=== PATIENT | female | born 1940 | race Caucasian/White ===

== ENCOUNTER 2016-09-13 18:39 | Inpatient (IN) | payer OTHER, MEDICARE ==
[~2016-09-13] VITALS: Ht 157.5 cm; Wt 92.0 kg
[~2016-09-13 18:39] MED LIST: ATOR40TA PO; CALCTAB80 PO; GABA600T PO; MAGN250T13 PO; OMEG100037 PO; PARO20TA PO; SYNT100T PO; TAB-TAB PO; VITA100017 PO; VITA20002 PO; Z.0.COMMODE-3:1; Z.0.WALKERFRONT
[2016-09-13 19:19] VITALS: BP 140/64; PULSE 76; RESP 22; TEMP 99.3; O2SAT 97
[2016-09-13] MEDS ORDERED: SODIUM CHLORIDE 0.9% FLUSH 10 ML FLUSH IVF PRN (19:30)
[2016-09-13] MEDS ORDERED: RESP: ALBUTEROL 2.5 MG/3 ML NEB (SCH) INH ONE (19:30)
--- NOTE | 2016-09-13 19:39 | PD ---
HPI Chief Complaint: Altered Mental Status Time Seen by Provider: 19:21 Travel History International Travel<30 days: No Contact w/Intl Traveler<30days: No Traveled to known affect area: No History of Present Illness HPI 76-year-old female arrives by EMS. History is provided by EMS and the patient. The patient drove here from [place] yesterday. The dry was at least 10 hours long. She arrived home yesterday and felt "crummy" in this morning felt chest pain shortness of breath and a cough. She also complains of generalized cephalgia. She denies fever. Onset gradual. Severity moderate. The patient has had no blood in her stool or urine. The patient is unaware of any other change in her baseline state of health and may account for her symptoms today. PFSH Past Medical History Cancer: No Cardiovascular Problems: No High Cholesterol: Yes Endocrine: No Gastrointestinal Disorders: Yes (GERD) Genitourinary: No Hepatitis: No Hiatal Hernia: No Hypertension: Yes (BORDERLINE) Immune Disorder: No Medical other: Yes (SHINGLES LEFT SIDE OF FACE) Musculoskeletal: Yes (GENERALIZED ARTHRITIS) Neurologic: No Psychiatric: No Reproductive: No Respiratory: No Thyroid Disease: Yes (HYPO) Tetanus Vaccination: > 5 Years Past Surgical History Abdominal Surgery: Yes (CHOLCYSTECTOMY) AICD: No Cardiac Surgery: No Cholecystectomy: Yes Ear Surgery: No Endocrine Surgery: No Eye Surgery: No Genitourinary Surgery: No Gynecologic Surgery: No Joint Replacement: Yes (TOTAL LEFT KNEE) Oral Surgery: No Pacemaker: No Thoracic Surgery: No Other Surgery: Yes (RT SHOULDER ) Social History Alcohol Use: No Tobacco Use: No Substance Use: No Allergies-Medications (Allergen,Severity, Reaction): Coded Allergies: No Known Allergies (Unverified , 11/11/15) Reported Meds & Prescriptions Reported Meds & Active Scripts Active Reported Calcium 600 + Vit D Tablet (Calcium Carbonate/Vitamin D3) 1 Each Tablet 1 Tab PO DAILY C-1000 (Ascorbic Acid) 1,000 Mg Tablet 1,000 Mg PO DAILY Gabapentin 600 Mg Tab 600 Mg PO DAILY PRN Levothyroxine (Levothyroxine Sodium) 100 Mcg Tab 100 Mcg PO DAILY Sm Magnesium (Magnesium) 250 Mg Tab 250 Mg PO DAILY Multi Vitamin Daily (Multiple Vitamin) 1 Tab Tab 1 Tab PO DAILY [place] 3 1000 mg ([place]-3 Fatty Acids) 1 Cap Cap 1,000 Mg PO DAILY Paxil (Paroxetine HCl) 40 Mg Tablet 40 Mg PO DAILY Review of Systems Except as stated in HPI: all other systems reviewed are Neg General / Constitutional: No: Fever Physical Exam Narrative GENERAL: 76-year-old female well-nourished well-developed AO 3 SKIN: Focused skin assessment warm/dry. HEAD: Atraumatic. Normocephalic. EYES: Pupils equal and round. No scleral icterus. No injection or drainage. ENT: No nasal bleeding or discharge. Mucous membranes pink and moist. NECK: Trachea midline. No JVD. CARDIOVASCULAR: Regular rate and rhythm. No murmur appreciated. RESPIRATORY: No accessory muscle use. Clear to auscultation. Breath sounds equal bilaterally. GASTROINTESTINAL: Abdomen soft, non-tender, nondistended. Hepatic and splenic margins not palpable. MUSCULOSKELETAL: No obvious deformities. No clubbing. No cyanosis. No edema. NEUROLOGICAL: CN III-XII normal. Moving all extremities normally. AOx3. PSYCHIATRIC: Appropriate mood and affect; insight and judgment normal. Data Data Last Documented VS Vital Signs Date Time Temp Pulse Resp B/P Pulse Ox O2 Delivery O2 Flow Rate FiO2 09/13/16 22:36 67 20 149/63 98 Nasal Cannula 2 09/13/16 19:19 99.3 VS reviewed Orders Complete Blood Count With Diff (09/13/16 19:26) Comprehensive Metabolic Panel (09/13/16 19:26) B-Type Natriuretic Peptide (09/13/16 19:26) Ckmb (Isoenzyme) Profile (09/13/16 19:26) Troponin I (09/13/16 19:26) Arterial Blood Gas (Abg) (09/13/16 19:26) Urinalysis - C+S If Indicated (09/13/16 19:26) Iv Access Insert/Monitor (09/13/16 19:26) Electrocardiogram (09/13/16 19:26) Ecg Monitoring (09/13/16 19:26) Oximetry (09/13/16 19:26) Oxygen Administration (09/13/16 19:26) Chest, Single Ap (09/13/16 19:26) Ct Pulmonary Angiogram (09/13/16 19:26) Sodium Chloride 0.9% Flush (Ns Flush) (09/13/16 19:30) Albuterol Neb (Albuterol Neb) (09/13/16 19:30) Us Leg Venous Doppler Bilat (09/13/16 ) CKMB (09/13/16 19:30) CKMB% (09/13/16 19:30) Ceftriaxone Inj (Rocephin Inj) (09/13/16 22:00) Azithromycin (Zithromax) (09/13/16 22:00) Iohexol 350 Inj (Omnipaque 350 Inj) (09/13/16 22:08) Furosemide Inj (Lasix Inj) (09/13/16 22:45) Admit Order (Ed Use Only) (09/13/16 22:48) Labs Laboratory Tests Test 09/13/16 09/13/16 19:30 19:40 White Blood Count 5.2 TH/MM3 Red Blood Count 4.08 MIL/MM3 Hemoglobin 12.3 GM/DL Hematocrit 37.2 % Mean Corpuscular Volume 91.3 FL Mean Corpuscular Hemoglobin 30.0 PG Mean Corpuscular Hemoglobin 32.9 % Concent Red Cell Distribution Width 14.2 % Platelet Count 148 TH/MM3 Mean Platelet Volume 9.3 FL Neutrophils (%) (Auto) 63.5 % Lymphocytes (%) (Auto) 21.5 % Monocytes (%) (Auto) 13.4 % Eosinophils (%) (Auto) 0.6 % Basophils (%) (Auto) 1.0 % Neutrophils # (Auto) 3.3 TH/MM3 Lymphocytes # (Auto) 1.1 TH/MM3 Monocytes # (Auto) 0.7 TH/MM3 Eosinophils # (Auto) 0.0 TH/MM3 Basophils # (Auto) 0.1 TH/MM3 CBC Comment DIFF FINAL Differential Comment Sodium Level 138 MEQ/L Potassium Level 3.8 MEQ/L Chloride Level 105 MEQ/L Carbon Dioxide Level 24.7 MEQ/L Anion Gap 8 MEQ/L Blood Urea Nitrogen 16 MG/DL Creatinine 1.19 MG/DL Estimat Glomerular Filtration 44 ML/MIN Rate Random Glucose 94 MG/DL Calcium Level 7.8 MG/DL Total Bilirubin 0.6 MG/DL Aspartate Amino Transf 77 U/L (AST/SGOT) Alanine Aminotransferase 61 U/L (ALT/SGPT) Alkaline Phosphatase 93 U/L Total Creatine Kinase 183 U/L Creatine Kinase MB 0.9 NG/ML Troponin I 0.03 NG/ML B-Type Natriuretic Peptide 368 PG/ML Total Protein 7.0 GM/DL Albumin 3.3 GM/DL Blood Gas Puncture Site RT RADIAL Blood Gas Patient Temperature 98.6 Blood Gas HCO3 24 mmol/L Blood Gas Base Excess 0.1 mmol/L Blood Gas Oxygen Saturation 97 % Arterial Blood pH 7.43 Arterial Blood Partial 36 mmHg Pressure CO2 Arterial Blood Partial 114 mmHG Pressure O2 Arterial Blood Oxygen Content 16.6 Vol % Arterial Blood 1.1 % Carboxyhemoglobin Arterial Blood Methemoglobin 0.6 % Blood Gas Hemoglobin 12.1 G/DL Oxygen Delivery Device NASAL CANNULA Blood Gas Liter Flow 3.5 L/M Blood Gas Inspired Oxygen 34 % MDM Medical Decision Making Medical Screen Exam Complete: Yes Emergency Medical Condition: Yes Medical Record Reviewed: Yes Differential Diagnosis Pneumonia, CHF, UTI, anemia, hyperuremia Narrative Course CBC & BMP Diagram 09/13/16 19:30 BNP 368 Tn 0.03 CKMB 0.9 ALT 61 AST 77 Last 24 hours Impressions Chest X-Ray 09/13/161925 Signed Impressions: Service Date/Time: September 19:25 - CONCLUSION: Perihilar and left lower lung air space opacities suggest either pulmonary edema or infiltrates. Rubio Velazquez MD CT Angiography 09/13/161925 Signed Impressions: Service Date/Time: September 22:06 - CONCLUSION: 1. The study is negative for pulmonary embolism. 2. Patchy areas of infiltrate in the lower lungs bilaterally. Rubio Velazquez MD Lower Extremity Ultrasound 09/13/16 0000 Signed Impressions: Service Date/Time: September 20:17 - CONCLUSION: The study is negative for deep venous thrombosis bilateral lower extremity. Rubio Velazquez MD The patient has a left lung pneumonia. Antibiotic started. Admission for the same. Discussed Dr Shelley. Diagnosis Primary Impression: PNA (pneumonia) Qualified Code: J18.1 - Pneumonia of left lower lobe due to infectious organism Additional Impression: Chest pain at rest Admitting Information Admitting Physician Requests: Admit Grant Velarde MD Sep 13, 2016 19:39
[2016-09-13 20:07] LABS: AUTOMATED NEUTROPHIL # 3.3 TH/MM3 (1.8-7.7); BASOPHIL # 0.1 TH/MM3 (0-0.2); EOSINOPHIL % 0.6 % (0.0-4.0); HEMATOCRIT 37.2 % (35.0-46.0); HEMO FLAGS DIFF FINAL; LYMPH % 21.5 % (9.0-44.0); LYMPHOCYTE # 1.1 TH/MM3 (1.0-4.8); MEAN CELL VOLUME 91.3 FL (80.0-100.0); MEAN CORPUSCULAR HGB CONC 32.9 % (32.0-36.0); MONO % 13.4 % (0.0-8.0); NEUT % 63.5 % (16.0-70.0); PLATELET COUNT 148 TH/MM3 (150-450); RED BLOOD COUNT 4.08 MIL/MM3 (4.00-5.30); RED CELL DISTRIBUTION WIDTH 14.2 % (11.6-17.2); WHITE BLOOD COUNT 5.2 TH/MM3 (4.0-11.0)
[2016-09-13 20:07] LABS: BLOOD GAS BASE EXCESS 0.1 mmol/L (-2-2); BLOOD GAS CARBOXYHEMOGLOBIN 1.1 % (0-4); BLOOD GAS HCO3 24 mmol/L (22-26); BLOOD GAS METHEMOGLOBIN 0.6 % (0-2); BLOOD GAS O2 HGB SATURATION 97 % (90-100); BLOOD GAS OXYGEN CONTENT 16.6 Vol % (12.0-20.0); BLOOD GAS PCO2 36 mmHg (38-42); BLOOD GAS PO2 114 mmHG (61-120); BLOOD GAS TOTAL HGB 12.1 G/DL (12.0-16.0); TEMP CORR TO 98.6
[2016-09-13 20:08] LABS: CRITICAL VALUE NO; DRAW SITE RT RADIAL; FIO2 34 %; LITER FLOW 3.5 L/M; NUMBER OF ARTERIAL PUNCTURES 1; OXYGEN DEVICE NASAL CANNULA; STAT NO; ULNAR PULSE PRESENT
--- NOTE | 2016-09-13 20:13 | RADRPT ---
EXAM DATE/TIME: 09/13/2016 19:25 [facility] COMPARISON: CHEST SINGLE AP, November 11, 2015, 13:40. INDICATIONS : Shortness of breath and coughing. MEDICAL HISTORY : Shingles. Hypercholesterolemia. Hypothyroidism. GERD, Hypertension. SURGICAL HISTORY : Rotator cuff, right. ENCOUNTER: Initial ACUITY: 1 day PAIN SCORE: 0/10 LOCATION: Bilateral chest FINDINGS: There is some indistinctness and fullness of the perihilar region which is a new finding compared to the prior chest x-ray. There also some patchy areas of infiltrate in the left lower lung. The heart is normal size. Right shoulder arthroplasty. CONCLUSION: Perihilar and left lower lung air space opacities suggest either pulmonary edema or infiltrates. Rubio Velazquez MD on September 13, 2016 at 20:10 Board Certified Radiologist. This report was verified electronically.
[2016-09-13 20:23] LABS: ANION GAP 8 MEQ/L (5-15); AST (GOT) 77 U/L (15-37); BICARBONATE 24.7 MEQ/L (21.0-32.0); BLOOD UREA NITROGEN 16 MG/DL (7-18); CHLORIDE 105 MEQ/L (98-107); GLOMERULAR FILTRATION RATE 44 ML/MIN (>89); POTASSIUM 3.8 MEQ/L (3.5-5.1); SODIUM (NA) 138 MEQ/L (136-145)
[2016-09-13 20:24] LABS: ALT (GPT) 61 U/L (10-53)
[2016-09-13 20:28] LABS: ALKALINE PHOSPHATASE 93 U/L (45-117); CREATINE KINASE 183 U/L (26-192); TOTAL BILIRUBIN ADULT 0.6 MG/DL (0.2-1.0)
[2016-09-13 20:41] LABS: CKMB 0.9 NG/ML (0.5-3.6)
--- NOTE | 2016-09-13 21:21 | RADRPT ---
EXAM DATE/TIME: 09/13/2016 20:17 [facility] COMPARISON: No previous studies available for comparison. INDICATIONS : Bilateral leg pain. MEDICAL HISTORY : Hypercholesterolemia. Hypertension. Gastroesophageal reflux disease. Hypothyroidism. Arthritis. SURGICAL HISTORY : Cholecystectomy.Total knee replacement, left. Right rotator cuff surgery. ENCOUNTER: Initial ACUITY: 1 day PAIN SCORE: 6/10 LOCATION: Bilateral legs. TECHNIQUE: Venous ultrasound of the left and right leg was performed from the inguinal ligament to the proximal calf. Real-time, color Doppler and spectral tracing, compression and augmentation techniques were us ed. FINDINGS: RIGHT LEG: There is normal compressibility of the deep venous system from the inguinal region to the proximal ca lf. No echogenic clot is seen in the lumen of the common femoral, femoral, popliteal, and posterior tibial veins. There is a normal response of the venous system to proximal and distal augmentation an d respiration. LEFT LEG: There is normal compressibility of the deep venous system from the inguinal region to the proximal ca lf. No echogenic clot is seen in the lumen of the common femoral, femoral, popliteal, and posterior tibial veins. There is a normal response of the venous system to proximal and distal augmentation an d respiration. CONCLUSION: The study is negative for deep venous thrombosis bilateral lower extremity. Rubio Velazquez MD on September 13, 2016 at 21:18 Board Certified Radiologist. This report was verified electronically.
[2016-09-13] MEDS ORDERED: OMEG100010 PO (21:33)
[2016-09-13] MEDS ORDERED: CALC600T64 PO (21:33)
[2016-09-13] MEDS ORDERED: MULT1TAB46 PO (21:33)
[2016-09-13] MEDS ORDERED: GABA600T PO (21:33)
[2016-09-13] MEDS ORDERED: ASCO1TAB14 PO (21:33)
[2016-09-13] MEDS ORDERED: LEVO100T5 PO (21:33)
[2016-09-13] MEDS ORDERED: SM M250T PO (21:33)
[2016-09-13] MEDS ORDERED: PAXI40TA8 PO (21:33)
[2016-09-13 21:47] VITALS: BP 135/59; PULSE 74; RESP 25; O2SAT 95
[2016-09-13 21:48] VITALS: RESP 24; O2SAT 95
[2016-09-13] MEDS ORDERED: AZITHROMYCIN 250 MG TAB PO ONE (22:00)
[2016-09-13] MEDS ORDERED: cefTRIAXone INJ 1,000 MG in SODIUM CHLORIDE 0.9% INJ 100 ML IV ONE (22:00)
[2016-09-13] MEDS ORDERED: IOHEXOL 350 MG/ML 10 ML VIAL (for RAD DIAG) IV ONE (22:08)
--- NOTE | 2016-09-13 22:22 | RADRPT ---
EXAM DATE/TIME: 09/13/2016 22:06 [facility] COMPARISON: No previous studies available for comparison. INDICATIONS : Altered mental status. Low oxygen saturations. IV CONTRAST: 65 cc Omnipaque 350 (iohexol) IV RADIATION DOSE: 18.08 CTDIvol (mGy) MEDICAL HISTORY : None SURGICAL HISTORY : None. ENCOUNTER: Initial ACUITY: 1 day PAIN SCALE: 0/10 LOCATION: chest TECHNIQUE: Volumetric scanning of the chest was performed using a pulmonary embolism protocol MIP images were re constructed. Using automated exposure control and adjustment of the mA and/or kV according to patien t size, radiation dose was kept as low as reasonably achievable to obtain optimal diagnostic quality images. DICOM format image data is available electronically for review and comparison. Follow-up recommendations for incidentally detected pulmonary nodules are based at a minimum on nodul e size and patient risk factors according to Fleischner Society Guidelines. FINDINGS: PULMONARY ARTERIES: No filling defects are seen in the pulmonary arteries through the segmental level. LUNGS: There is small multifocal areas of airspace infiltrate in the lower lungs bilaterally and in the post erior lateral left costophrenic angle. PLEURAE: There is no pleural thickening or pleural effusion. MEDIASTINUM: There is good visualization of the great vessels of the middle mediastinum. No evidence of mediastin al or hilar adenopathy/mass. CONCLUSION: 1. The study is negative for pulmonary embolism. 2. Patchy areas of infiltrate in the lower lungs bilaterally. Rubio Velazquez MD on September 13, 2016 at 22:18 Board Certified Radiologist. This report was verified electronically.
[2016-09-13 22:36] VITALS: BP 149/63; PULSE 67; RESP 20; O2SAT 98
[2016-09-13] MEDS ORDERED: FUROSEMIDE 20 MG/2 ML VIAL IV PUSH ONE (22:45)
--- NOTE | 2016-09-13 23:11 | HHI.HP ---
HPI Service [facility] Primary Care Physician Raul Vallejo M.D. Admission Diagnosis L PNA, AMS Diagnoses: (1) Encephalopathy Diagnosis: Principal (2) PNA (pneumonia) Diagnosis: Principal (3) Thrombocytopenia Diagnosis: Principal (4) Renal insufficiency Diagnosis: Principal Travel History International Travel<30 Days: No Contact w/Intl Traveler <30 Da: No Traveled to Known Affected Are: No History of Present Illness This is a 76-year-old female with a PMH of HTN, Hyperlipidemia and Hypothyroidism was brought to the ER by EMS secondary to altered mental status. Per EMS, patient drove from [place] and arrived in [facility] yesterday, today was noted to have complaints of SOB and cough. Per , patient woke up this morning confused at which time he called EMS. Per EMS: O2 sat 90% on RA. On arrival, BP 135/59, HR 74, O2 sat 95% on 2L NC, Temp 99.3. CBC unremarkable except for platelets 148, previously 197 on 11/11/15. Creatinine 1.19, previously 1.31 on 11/11/15. Troponin negative. BNP 368. CXR with perihilar and left lower lung airspace opacities, pulmonary edema or infiltrates. CTA Pulm negative for PE, patchy areas of infiltrate at bases bilaterally. S/p Rocephin/Zithro/Lasix in ER. Review of Systems Except as stated in HPI: all other systems reviewed are Neg ROS: 14 point review of systems otherwise negative. Past Family Social History Past Medical History PMH: HTN, Hyperlipidemia and Hypothyroidism Past Surgical History PAST SURGICAL HISTORY: Cholecystectomy, Left Knee Replacement, Right Shoulder Surgery Allergies: Coded Allergies: No Known Allergies (Unverified , 11/11/15) Family History PAST FAMILY HISTORY: Reviewed. No h/o DM or CAD Social History PAST SOCIAL HISTORY: Negative for alcohol, tobacco or drugs. Physical Exam Vital Signs Vital Signs Date Time Temp Pulse Resp B/P Pulse Ox O2 Delivery O2 Flow Rate FiO2 09/13/16 21:48 24 95 Nasal Cannula 2 09/13/16 21:48 95 Nasal Cannula 2 09/13/16 21:47 74 25 135/59 95 Nasal Cannula 2 09/13/16 19:23 99 Nasal Cannula 4 09/13/16 19:19 99.3 76 22 140/64 97 Physical Exam PE: GENERAL: Elderly white female in no acute distress, confusion resolved. HEENT: PERRLA, EOMI. No scleral icterus or conjunctival pallor. No lid lag or facial droop. CARDIOVASCULAR: Regular rate and rhythm. No obvious murmurs to auscultation. No chest tenderness to palpation. RESPIRATORY: No obvious rhonchi or wheezing. Clear to auscultation. Breath sounds equal bilaterally. GASTROINTESTINAL: Abdomen soft, non-tender, nondistended. BS normal. MUSCULOSKELETAL: Extremities without clubbing, cyanosis, or edema. No obvious deformities. NEUROLOGICAL: Awake, alert and oriented x4. No focal neurologic deficits. Moving both upper and lower extremities spontaneously. Laboratory Laboratory Tests Test 09/13/16 09/13/16 19:30 19:40 White Blood Count 5.2 Red Blood Count 4.08 Hemoglobin 12.3 Hematocrit 37.2 Mean Corpuscular Volume 91.3 Mean Corpuscular Hemoglobin 30.0 Mean Corpuscular Hemoglobin 32.9 Concent Red Cell Distribution Width 14.2 Platelet Count 148 Mean Platelet Volume 9.3 Neutrophils (%) (Auto) 63.5 Lymphocytes (%) (Auto) 21.5 Monocytes (%) (Auto) 13.4 Eosinophils (%) (Auto) 0.6 Basophils (%) (Auto) 1.0 Neutrophils # (Auto) 3.3 Lymphocytes # (Auto) 1.1 Monocytes # (Auto) 0.7 Eosinophils # (Auto) 0.0 Basophils # (Auto) 0.1 CBC Comment DIFF FINAL Differential Comment Sodium Level 138 Potassium Level 3.8 Chloride Level 105 Carbon Dioxide Level 24.7 Anion Gap 8 Blood Urea Nitrogen 16 Creatinine 1.19 Estimat Glomerular Filtration 44 Rate Random Glucose 94 Calcium Level 7.8 Total Bilirubin 0.6 Aspartate Amino Transf 77 (AST/SGOT) Alanine Aminotransferase 61 (ALT/SGPT) Alkaline Phosphatase 93 Total Creatine Kinase 183 Creatine Kinase MB 0.9 Troponin I 0.03 B-Type Natriuretic Peptide 368 Total Protein 7.0 Albumin 3.3 Blood Gas Puncture Site RT RADIAL Blood Gas Patient Temperature 98.6 Blood Gas HCO3 24 Blood Gas Base Excess 0.1 Blood Gas Oxygen Saturation 97 Arterial Blood pH 7.43 Arterial Blood Partial 36 Pressure CO2 Arterial Blood Partial 114 Pressure O2 Arterial Blood Oxygen Content 16.6 Arterial Blood 1.1 Carboxyhemoglobin Arterial Blood Methemoglobin 0.6 Blood Gas Hemoglobin 12.1 Oxygen Delivery Device NASAL CANNULA Blood Gas Liter Flow 3.5 Blood Gas Inspired Oxygen 34 Result Diagram: 09/13/16192909/13/161929 Assessment and Plan Problem List: (1) Encephalopathy ICD Code: G93.40 Status: Acute (2) PNA (pneumonia) ICD Code: J18.9 Status: Acute (3) Thrombocytopenia ICD Code: D69.6 Status: Acute (4) Renal insufficiency ICD Code: N28.9 Status: Acute Assessment and Plan A/P: 1. Encephalopathy: Transient. Likely secondary to acute infection. 2. PNA: CXR w/ perihilar and left lower lung airspace opacities, pulmonary edema or infiltrates. CTA Pulm negative for PE, patchy areas of infiltrate bilateral bases, images reviewed by me. S/p Rocephin/Zithro in ER and Lasix IV. Will continue w/ IV Abx, DuoNeb prn if needed. 3. Renal Insufficiency: Chronic. Creatinine 1.19, previously 1.31 at . Will monitor. Repeat labs in a.m. 4. Thrombocytopenia: Platelets 148, previously 197 on 11/11/15. No active bleeding at this time. Will monitor. Repeat labs in a.m. 5. DVT Prophylaxis: SCD/teds. 6. hog worker DC planning as needed. 7. Case discussed at length with ER physician. Physician Certification 2 Midnight Certification Type: Admission for Inpatient Services Order for Inpatient Services The services are ordered in accordance with Medicare regulations or non- Medicare payer requirements, as applicable. In the case of services not specified as inpatient-only, they are appropriately provided as inpatient services in accordance with the 2-midnight benchmark. Estimated LOS (days): 2 days is the estimated time the patient will need to remain in the hospital, assuming treatment plan goals are met and no additional complications. Post-Hospital Plan: Not yet determined Polina Shelley MD Sep 13, 2016 23:11
[2016-09-13] MEDS ORDERED: SODIUM CHLORIDE 0.9% FLUSH 10 ML FLUSH IV FLUSH PRN (23:15)
[2016-09-13] MEDS ORDERED: ACETAMINOPHEN 325 MG TAB PO PRN (23:15)
[2016-09-13] MEDS ORDERED: SENNOSIDES 8.6 MG TAB PO PRN (23:15)
[2016-09-13] MEDS ORDERED: BISACODYL 10 MG SUPP RECTAL PRN (23:15)
[2016-09-13] MEDS ORDERED: ONDANSETRON HCL 4 MG/2 ML VIAL IVP PRN (23:15)
[2016-09-13] MEDS ORDERED: MAGNESIUM HYDROXIDE SUSP 30 ML CUP PO PRN (23:15)
[2016-09-13] MEDS ORDERED: RESP: ALBUTEROL 2.5 MG/IPRATROPIUM 0.5 MG NEB (PRN) NEB (23:15)
[2016-09-13] MEDS ORDERED: LACTULOSE SYRUP 20 GM/30 ML CUP PO PRN (23:15)
[2016-09-13] MEDS: SODIUM CHLOR 0.9% 1000 ML INJ 1,000 ML IV SCH (23:33)
[2016-09-14] VITALS (7 sets, daily range): BP systolic 113–139; BP diastolic 58–61; PULSE 69–91; RESP 15–22; TEMP 97.9–101; O2SAT 95–99
[2016-09-14 05:57] LABS: BLOOD, URINE NEG (NEG); GLUCOSE,URINE NEG (NEG); HYALINE CAST, URINE 3 /lpf (RARE); KETONE, URINE NEG (NEG); NITRITE,URINE NEG (NEG); SQUAMOUS EPITHELIAL CELL URINE <1 /hpf (0-5); TRANSITIONAL EPI CELLS, URINE 2 /hpf; URINE COLOR LIGHT-YELLOW (YELLW/STRAW)
[2016-09-14 06:11] LABS: COMMENT (UR) CULT NOT INDICATED; CULTURE IF INDICATED CULT NOT INDICATED
[2016-09-14 07:45] LABS: AUTOMATED NEUTROPHIL # 2.4 TH/MM3 (1.8-7.7); BASOPHIL % 0.9 % (0.0-2.0); EOSINOPHIL # 0.1 TH/MM3 (0-0.4); EOSINOPHIL % 1.1 % (0.0-4.0); HEMATOCRIT 37.7 % (35.0-46.0); HEMO FLAGS DIFF FINAL; LYMPH % 31.4 % (9.0-44.0); LYMPHOCYTE # 1.4 TH/MM3 (1.0-4.8); MEAN CELL VOLUME 90.4 FL (80.0-100.0); MEAN CORPUSCULAR HGB CONC 33.2 % (32.0-36.0); MONO % 14.6 % (0.0-8.0); PLATELET COUNT 143 TH/MM3 (150-450); RED BLOOD COUNT 4.17 MIL/MM3 (4.00-5.30); RED CELL DISTRIBUTION WIDTH 14.5 % (11.6-17.2); WHITE BLOOD COUNT 4.6 TH/MM3 (4.0-11.0)
[2016-09-14 08:07] LABS: ALT (GPT) 69 U/L (10-53); ANION GAP 9 MEQ/L (5-15); AST (GOT) 87 U/L (15-37); BICARBONATE 27.4 MEQ/L (21.0-32.0); BLOOD UREA NITROGEN 15 MG/DL (7-18); CHLORIDE 103 MEQ/L (98-107); GLOMERULAR FILTRATION RATE 45 ML/MIN (>89); POTASSIUM 3.6 MEQ/L (3.5-5.1); SODIUM (NA) 139 MEQ/L (136-145)
[2016-09-14 08:08] LABS: ALKALINE PHOSPHATASE 89 U/L (45-117); TOTAL BILIRUBIN ADULT 0.4 MG/DL (0.2-1.0)
[2016-09-14] MEDS: DOCUSATE SODIUM 50 MG/SENNA 8.6 MG TAB PO SCH ×2 (09:00→20:17)
[2016-09-14] MEDS: SODIUM CHLORIDE 0.9% FLUSH 10 ML FLUSH IV FLUSH SCH ×2 (09:14→20:17)
[2016-09-14] MEDS: guaiFENesin E.R. 600 MG TAB PO SCH ×2 (09:14→20:16)
[2016-09-14] MEDS: SODIUM CHLOR 0.9% 1000 ML INJ 1,000 ML IV SCH ×2 (09:16→20:36)
[2016-09-14] MEDS ORDERED: BENZONATATE 100 MG CAP PO PRN (10:15)
--- NOTE | 2016-09-14 10:26 | HHI.PR ---
Subjective Remarks Follow-up for pneumonia and altered mental status. She does not recall much about being confused yesterday. Currently she is oriented to person, place, and time. She states that she's been having a dry cough for the past month. She does feel like her shortness of breath is a bit improved today, but the cough is persisting. She denies any fever or chills. Lives at home with her . Tolerating oral intake. Objective Vitals Vital Signs Date Time Temp Pulse Resp B/P Pulse Ox O2 Delivery O2 Flow Rate FiO2 09/14/16 09:02 98.2 70 20 120/58 95 09/14/16 01:22 98.9 71 15 118/58 99 09/13/16 22:36 67 20 149/63 98 Nasal Cannula 2 09/13/16 21:48 24 95 Nasal Cannula 2 09/13/16 21:48 95 Nasal Cannula 2 09/13/16 21:47 74 25 135/59 95 Nasal Cannula 2 09/13/16 19:23 99 Nasal Cannula 4 09/13/16 19:19 99.3 76 22 140/64 97 I/O 09/13/16 09/13/16 09/13/16 09/14/16 09/14/16 09/14/16 06:59 14:59 22:59 06:59 14:59 22:59 Intake Total 200 ml Balance 200 ml Intake Oral 200 ml Result Diagram: 09/14/16 0725 09/14/16 0725 Imaging Last Impressions Chest X-Ray 09/13/161925 Signed Impressions: Service Date/Time: September 19:25 - CONCLUSION: Perihilar and left lower lung air space opacities suggest either pulmonary edema or infiltrates. Rubio Velazquez MD CT Angiography 09/13/161925 Signed Impressions: Service Date/Time: September 22:06 - CONCLUSION: 1. The study is negative for pulmonary embolism. 2. Patchy areas of infiltrate in the lower lungs bilaterally. Rubio Velazquez MD Lower Extremity Ultrasound 09/13/16 0000 Signed Impressions: Service Date/Time: September 20:17 - CONCLUSION: The study is negative for deep venous thrombosis bilateral lower extremity. Rubio Velazquez MD Objective Remarks GENERAL: Well-developed well-nourished. In no acute distress. Oriented 3. SKIN: Warm and dry. No lesions noted. HEENT: Normocephalic. Pupils equal and round. Mucous membranes pink and moist. CARDIOVASCULAR: Regular rate and rhythm. No murmur appreciated. RESPIRATORY: No accessory muscle use. Clear to auscultation. Coarse crackles bilateral bases. GASTROINTESTINAL: Abdomen soft, non-tender, nondistended. Bowel sounds x4. MUSCULOSKELETAL: No obvious deformities. No clubbing or cyanosis. No edema. NEUROLOGICAL: Awake and alert. No focal neurological deficits. Moves upper and lower extremities spontaneously. Normal speech. PSYCHIATRIC: Appropriate mood and affect; insight and judgment normal. A/P Problem List: (1) Encephalopathy ICD Code: G93.40 Status: Resolved (2) PNA (pneumonia) ICD Code: J18.9 Status: Acute (3) Thrombocytopenia ICD Code: D69.6 Status: Acute (4) Renal insufficiency ICD Code: N28.9 Status: Chronic Assessment and Plan 76-year-old female with a PMH of HTN, Hyperlipidemia and Hypothyroidism who presented with altered mental status and found to have pneumonia Acute metabolic Encephalopathy: Improved. Patient was found to be hypoxic 90% upon EMS arrival. Mental status improved with supplemental oxygen. Likely secondary to acute infection and hypoxia, treatment as below. PNA: CXR w/ perihilar and left lower lung airspace opacities, pulmonary edema or infiltrates. CTA Pulm negative for PE, patchy areas of infiltrate bilateral bases. Continue IV Rocephin/Zithro. DuoNeb prn if needed. Supplemental O2, titrate as tolerated. Acapella. Mucinex scheduled and Tessalon as needed for cough. CKD: Chronic, stable. Creatinine 1.19, previously 1.31 at 11/11/15. Creatinine 1.16 overnight. Continue IVF. Monitor. Thrombocytopenia: Platelets 148/143, previously 197 on 11/11/15. No active bleeding at this time. Likely secondary to acute infection. Monitor. DVT Prophylaxis: SCD/teds. Discharge Planning Still requiring 2 L O2. Discharge planning pending further clinical improvement. PT consulted, recommends home PT if needed. Problem Qualifiers (1) PNA (pneumonia): Qualified Code: J18.9 - Pneumonia of both lower lobes due to infectious organism Rich Marte Sep 14, 2016 10:26
--- NOTE | 2016-09-14 11:06 | EKG ---
Date Performed: 09/13/2016 Time Performed: 19:56:15 PTAGE: 76 years EKG: Sinus rhythm NONSPECIFIC T-WAVE ABNORMALITY BORDERLINE ECG Since PREVIOUS TRACING , no significant change noted PREVIOUS TRACIN11/11/2015 19.39.00 DOCTOR: Gopi Velez Interpretating Date/Time 09/17/2016 06:41:03
[2016-09-14] MEDS: cefTRIAXone INJ 1,000 MG in SODIUM CHLORIDE 0.9% INJ 100 ML IV SCH (22:46)
[2016-09-14] MEDS: AZITHROMYCIN INJ 500 MG in SODIUM CHLOR 0.9% 250 ML INJ 250 ML IV SCH (23:26)
[2016-09-15] VITALS (7 sets, daily range): BP systolic 104–123; BP diastolic 52–91; PULSE 63–81; RESP 16–20; TEMP 98.7–100.3; O2SAT 93–98
--- NOTE | 2016-09-15 09:20 | HHI.PR ---
Subjective Remarks In the bed, says she feels wheezy and with sob. + cough with sputum production. No n/v/d/c. Had chills and also she was sweating. Says no fevers. No n/v/d/c. Objective Vitals Vital Signs Date Time Temp Pulse Resp B/P Pulse Ox O2 Delivery O2 Flow Rate FiO2 09/15/16 04:00 100.3 77 16 121/74 96 09/15/16 00:00 98.8 72 16 121/64 97 09/14/16 21:00 91 09/14/16 20:00 100.3 85 18 113/59 96 09/14/16 16:00 101.0 69 22 139/61 97 09/14/16 12:34 97.9 70 18 122/60 95 09/14/16 11:36 72 I/O 09/14/16 09/14/16 09/14/16 09/15/16 09/15/16 09/15/16 07:00 15:00 23:00 07:00 15:00 23:00 Intake Total 200 ml 240 ml 1051 ml Balance 200 ml 240 ml 1051 ml Intake Oral 200 ml 240 ml 240 ml IV Total 811 ml # Voids 1 Result Diagram: 09/14/1625 09/14/16724 Imaging Last Impressions Chest X-Ray 09/13/161925 Signed Impressions: Service Date/Time: September 19:25 - CONCLUSION: Perihilar and left lower lung air space opacities suggest either pulmonary edema or infiltrates. Rubio Velazquez MD CT Angiography 09/13/161925 Signed Impressions: Service Date/Time: September 22:06 - CONCLUSION: 1. The study is negative for pulmonary embolism. 2. Patchy areas of infiltrate in the lower lungs bilaterally. Rubio Velazquez MD Lower Extremity Ultrasound 09/13/16 0000 Signed Impressions: Service Date/Time: September 20:17 - CONCLUSION: The study is negative for deep venous thrombosis bilateral lower extremity. Rubio Velazquez MD Objective Remarks GENERAL: Well-developed well-nourished. In no acute distress. Oriented 3. CARDIOVASCULAR: Regular rate and rhythm. No murmur appreciated. RESPIRATORY: No accessory muscle use. Clear to auscultation. Coarse crackles bilateral bases. GASTROINTESTINAL: Abdomen soft, non-tender, nondistended. Bowel sounds x4. MUSCULOSKELETAL: No obvious deformities. No clubbing or cyanosis. No edema. NEUROLOGICAL: Awake and alert. No focal neurological deficits. Moves upper and lower extremities spontaneously. Normal speech. PSYCHIATRIC: Appropriate mood and affect; insight and judgment normal. A/P Problem List: (1) Encephalopathy ICD Code: G93.40 Status: Resolved (2) PNA (pneumonia) ICD Code: J18.9 Status: Acute (3) Thrombocytopenia ICD Code: D69.6 Status: Acute (4) Renal insufficiency ICD Code: N28.9 Status: Chronic Assessment and Plan 76-year-old female with a PMH of HTN, Hyperlipidemia and Hypothyroidism who presented with altered mental status and found to have pneumonia Bilateral PNA: CXR w/ perihilar and left lower lung airspace opacities, pulmonary edema or infiltrates. CTA Pulm negative for PE, patchy areas of infiltrate bilateral bases. Continue IV Rocephin/Zithro. DuoNeb prn if needed. Supplemental O2, titrate as tolerated. Acapella. Mucinex scheduled and Tessalon as needed for cough. Duonebs for wheezing and sob supportive Check sputum cultures Acute metabolic Encephalopathy: Improved. Patient was found to be hypoxic 90% upon EMS arrival. Mental status improved with supplemental oxygen. Likely secondary to acute infection and hypoxia, see above. CKD: Chronic, stable. Creatinine 1.19, previously 1.31 at 11/11/15. Creatinine 1.16 overnight. Continue IVF. Monitor. Thrombocytopenia: Platelets 148/143, previously 197 on 11/11/15. No active bleeding at this time. Likely secondary to acute infection. Monitor. DVT Prophylaxis: SCD/teds. Discharge Planning Still requiring 2 L O2. Discharge planning pending further clinical improvement. PT consulted, recommends home PT if needed. Problem Qualifiers (1) PNA (pneumonia): Qualified Code: J18.9 - Pneumonia of both lower lobes due to infectious organism Meenu Frausto MD Sep 15, 2016 09:20
[2016-09-15] MEDS: guaiFENesin E.R. 600 MG TAB PO SCH ×2 (10:36→20:41)
[2016-09-15] MEDS: DOCUSATE SODIUM 50 MG/SENNA 8.6 MG TAB PO SCH ×2 (10:36→20:41)
[2016-09-15] MEDS: SODIUM CHLORIDE 0.9% FLUSH 10 ML FLUSH IV FLUSH SCH ×2 (10:36→20:43)
[2016-09-15] MEDS ORDERED: WALKER WHEELS/F1 MIS (11:01)
--- NOTE | 2016-09-15 11:02 | HHI.FF ---
Face to Face Verification Diagnosis: (1) Hyperlipidemia (2) Hyperlipidemia (3) Hypothyroidism (4) Renal insufficiency (5) Thrombocytopenia (6) Encephalopathy (7) GERD (gastroesophageal reflux disease) (8) PNA (pneumonia) (9) Total knee replacement status Physical Therapy Order: Evaluate and Treat Home Health Nursing Order: Medical education Signs/symptoms of disease process Oxygen administration education Medication education-adverse effect Nursing assessment with vital signs I have seen patient Bhumika Riggins on 09/15/16. My clinical findings support the need for the requested home health care services because: Ltd mobility - disease progression Patient has SOB I certify that my clinical findings support that this patient is homebound because: Post-op weakness Hx COPD- exertion dyspnea/weakness Unsteady gait/balance Meenu Frausto MD Sep 15, 2016 11:02
[2016-09-15 11:54] LABS: HEMATOCRIT 38.9 % (35.0-46.0); MEAN CELL VOLUME 91.7 FL (80.0-100.0); MEAN CORPUSCULAR HEMOGLOBIN 30.2 PG (27.0-34.0); MEAN CORPUSCULAR HGB CONC 32.9 % (32.0-36.0); PLATELET COUNT 134 TH/MM3 (150-450); RED BLOOD COUNT 4.25 MIL/MM3 (4.00-5.30); RED CELL DISTRIBUTION WIDTH 14.5 % (11.6-17.2); REVIEW FLAG FINAL; WHITE BLOOD COUNT 4.6 TH/MM3 (4.0-11.0)
[2016-09-15 12:14] LABS: ALT (GPT) 70 U/L (10-53); ANION GAP 9 MEQ/L (5-15); AST (GOT) 87 U/L (15-37); BICARBONATE 23.9 MEQ/L (21.0-32.0); BLOOD UREA NITROGEN 13 MG/DL (7-18); CHLORIDE 107 MEQ/L (98-107); GLOMERULAR FILTRATION RATE 53 ML/MIN (>89); POTASSIUM 3.7 MEQ/L (3.5-5.1); SODIUM (NA) 140 MEQ/L (136-145)
[2016-09-15 12:17] LABS: ALKALINE PHOSPHATASE 79 U/L (45-117); TOTAL BILIRUBIN ADULT 0.3 MG/DL (0.2-1.0)
[2016-09-15] MEDS ORDERED: RESP: ALBUTEROL 2.5 MG/IPRATROPIUM 0.5 MG NEB (PRN) NEB (14:00)
[2016-09-15] MEDS ORDERED: predniSONE 10 MG TAB PO ONE (14:00)
[2016-09-15] MEDS: RESP: ALBUTEROL 2.5 MG/IPRATROPIUM 0.5 MG NEB (SCH) NEB ×2 (14:00→19:36)
[2016-09-15] MEDS: SODIUM CHLOR 0.9% 1000 ML INJ 1,000 ML IV SCH (16:51)
[2016-09-15] MEDS ORDERED: diphenhydrAMINE HCL 25 MG CAP PO ONE ×2 (21:45)
[2016-09-15] MEDS: cefTRIAXone INJ 1,000 MG in SODIUM CHLORIDE 0.9% INJ 100 ML IV SCH (22:28)
[2016-09-16] VITALS (9 sets, daily range): BP systolic 121–151; BP diastolic 61–96; PULSE 58–95; RESP 17–22; TEMP 96.1–98.6; O2SAT 95–99
[2016-09-16] MEDS: AZITHROMYCIN INJ 500 MG in SODIUM CHLOR 0.9% 250 ML INJ 250 ML IV SCH ×2 (00:13→23:23)
[2016-09-16] MEDS: SODIUM CHLOR 0.9% 1000 ML INJ 1,000 ML IV SCH ×2 (03:27→21:22)
[2016-09-16] MEDS: RESP: ALBUTEROL 2.5 MG/IPRATROPIUM 0.5 MG NEB (SCH) NEB ×3 (08:07→20:28)
[2016-09-16] MEDS: SODIUM CHLORIDE 0.9% FLUSH 10 ML FLUSH IV FLUSH SCH ×2 (08:52→21:17)
[2016-09-16] MEDS: guaiFENesin E.R. 600 MG TAB PO SCH ×2 (08:52→21:16)
[2016-09-16] MEDS: predniSONE 10 MG TAB PO SCH (08:52)
[2016-09-16] MEDS: DOCUSATE SODIUM 50 MG/SENNA 8.6 MG TAB PO SCH ×2 (08:53→21:15)
[2016-09-16] MEDS ORDERED: CEFU1TAB20 PO (12:42)
[2016-09-16] MEDS ORDERED: VENTAER INH (12:43)
--- NOTE | 2016-09-16 12:44 | HHI.DS ---
Discharge Summary Admission Date Sep 13, 2016 at 22:49 Discharge Date: Sep 17, 2016 Admitting Diagnosis L PNA, AMS (1) Encephalopathy ICD Code: G93.40 Diagnosis: Principal (2) PNA (pneumonia) ICD Code: J18.9 Diagnosis: Principal (3) Thrombocytopenia ICD Code: D69.6 Diagnosis: Principal (4) Renal insufficiency ICD Code: N28.9 Diagnosis: Principal Procedures none Brief History - From Admission This is a 76-year-old female with a PMH of HTN, Hyperlipidemia and Hypothyroidism was brought to the ER by EMS secondary to altered mental status. Per EMS, patient drove from [place] and arrived in [facility] yesterday, today was noted to have complaints of SOB and cough. Per , patient woke up this morning confused at which time he called EMS. Per EMS: O2 sat 90% on RA. On arrival, BP 135/59, HR 74, O2 sat 95% on 2L NC, Temp 99.3. CBC unremarkable except for platelets 148, previously 197 on 11/11/15. Creatinine 1.19, previously 1.31 on 11/11/15. Troponin negative. BNP 368. CXR with perihilar and left lower lung airspace opacities, pulmonary edema or infiltrates. CTA Pulm negative for PE, patchy areas of infiltrate at bases bilaterally. S/p Rocephin/Zithro/Lasix in ER. CBC/BMP: 09/15/16 1031 09/15/16 1031 Significant Findings Laboratory Tests Test 09/13/16 09/13/16 09/14/16 09/14/16 19:30 19:40 05:30 07:25 Platelet Count 148 TH/MM3 143 TH/MM3 (150-450) (150-450) Monocytes (%) (Auto) 13.4 % 14.6 % (0.0-8.0) (0.0-8.0) Creatinine 1.19 MG/DL 1.16 MG/DL (0.50-1.00) (0.50-1.00) Estimat Glomerular Filtration 44 ML/MIN (>89) 45 ML/MIN (>89) Rate Calcium Level 7.8 MG/DL 8.2 MG/DL (8.5-10.1) (8.5-10.1) Aspartate Amino Transf 77 U/L (15-37) 87 U/L (15-37) (AST/SGOT) Alanine Aminotransferase 61 U/L (10-53) 69 U/L (10-53) (ALT/SGPT) B-Type Natriuretic Peptide 368 PG/ML (0-100) Albumin 3.3 GM/DL (3.4-5.0) Arterial Blood pH 7.43 (7.380-7.420) Arterial Blood Partial 36 mmHg (38-42) Pressure CO2 Urine Leukocyte Esterase SMALL (NEG) Test 09/15/16 10:31 Platelet Count 134 TH/MM3 (150-450) Creatinine 1.01 MG/DL (0.50-1.00) Estimat Glomerular Filtration 53 ML/MIN (>89) Rate Calcium Level 7.7 MG/DL (8.5-10.1) Aspartate Amino Transf 87 U/L (15-37) (AST/SGOT) Alanine Aminotransferase 70 U/L (10-53) (ALT/SGPT) Albumin 2.9 GM/DL (3.4-5.0) Imaging Last Impressions Chest X-Ray 09/13/161925 Signed Impressions: Service Date/Time: September 19:25 - CONCLUSION: Perihilar and left lower lung air space opacities suggest either pulmonary edema or infiltrates. Rubio Velazquez MD CT Angiography 09/13/161925 Signed Impressions: Service Date/Time: September 22:06 - CONCLUSION: 1. The study is negative for pulmonary embolism. 2. Patchy areas of infiltrate in the lower lungs bilaterally. Rubio Velazquez MD Lower Extremity Ultrasound 09/13/16 0000 Signed Impressions: Service Date/Time: September 20:17 - CONCLUSION: The study is negative for deep venous thrombosis bilateral lower extremity. Rubio Velazquez MD PE at Discharge GENERAL: Well-developed well-nourished. In no acute distress. Oriented 3. CARDIOVASCULAR: Regular rate and rhythm. No murmur appreciated. RESPIRATORY: No accessory muscle use. Clear to auscultation. Coarse crackles bilateral bases. GASTROINTESTINAL: Abdomen soft, non-tender, nondistended. Bowel sounds x4. MUSCULOSKELETAL: No obvious deformities. No clubbing or cyanosis. No edema. NEUROLOGICAL: Awake and alert. No focal neurological deficits. Moves upper and lower extremities spontaneously. Normal speech. PSYCHIATRIC: Appropriate mood and affect; insight and judgment normal. Pt update on day of discharge In the bed, says she feels improved today, no fever or chills. Still with cough but not much flegm. She was able to ambulate with PT today. SOB at baseline. feels improving and feels comfortable to go home. To f/u as OP with pCP and pulm Hospital Course 76-year-old female with a PMH of HTN, Hyperlipidemia and Hypothyroidism who presented with altered mental status and found to have bilateral pneumonia. Also was noted with sob and some wheezing. She was also noted desatting and requiring O2 by nasal canula. Patient received abx, nebs, prednisone, cough meds. Patient improved. Failed O2 walking test and requires o2 at e . PT also recommends PT at home. DC home with home health in sable condition To follow up as OP with PCP and consultants. Patient to follow up as OP with pulm as well. Bilateral PNA: CXR w/ perihilar and left lower lung airspace opacities, pulmonary edema or infiltrates. CTA Pulm negative for PE, patchy areas of infiltrate bilateral bases. Continue IV Rocephin/Zithro. DuoNeb prn if needed. Supplemental O2, titrate as tolerated. Acapella. Mucinex scheduled and Tessalon as needed for cough. Duonebs for wheezing and sob supportive Check sputum cultures if obtainable Acute metabolic Encephalopathy: Improved. Patient was found to be hypoxic 90% upon EMS arrival. Mental status improved with supplemental oxygen. Likely secondary to acute infection and hypoxia, see above. Patient failed O2 walking test satting 88% on room air. CKD: Chronic, stable. Creatinine 1.19, previously 1.31 at 11/11/15. Creatinine 1.16 overnight. Continue IVF. Monitor. Thrombocytopenia: Platelets 148/143, previously 197 on 11/11/15. No active bleeding at this time. Likely secondary to acute infection. Monitor. DVT Prophylaxis: SCD/teds. Discharge Planning Still requiring 2 L O2. Discharge planning pending further clinical improvement. PT consulted, recommends home PT if needed. Failed O2 walking test , needs O2 at home. Consult CM to arrange for DC needs. Discussed with the patient, nurse Pt Condition on Discharge: Stable Discharge Disposition: Disch w/ Home Health Serv Discharge Time: > 30 minutes Discharge Instructions DIET: Follow Instructions for: Heart Healthy Diet Activities you can perform: Regular-No Restrictions Follow up Referrals: PCP Follow-up - 2-3 Days Pulmonology - 3-5 Days New Medications: Albuterol 18 GM Inh (Ventolin Hfa 18 GM Inh) 90 Mcg/Act Aer 2 PUFF INH Q4-6H PRN SHORTNESS OF BREATH #1 Ref 0 INHALER Cefuroxime (Cefuroxime) 500 Mg Tab 500 MG PO BID Infection #14 Ref 0 TAB Oxygen (O2) (Oxygen (O2)) Device 2 LITER MORGAN.CANULA CONTINUOUS Oxygen Concentrator Portable Gaseous 2 L/min via Nasal Canula Continuous For 99 months Prevent Hypoxemia #2 CYLINDER Walker with Front Wheels (Walker with Front Wheels) 1 Mis Mis 1 EA .ROUTE DIRECTED #1 Ref 0 EA Continued Medications: Ascorbic Acid (C-1000) 1,000 Mg Tablet 1000 MG PO DAILY Calcium Carbonate/Vitamin D3 (Calcium 600 + Vit D Tablet) 1 Each Tablet 1 TAB PO DAILY Gabapentin (Gabapentin) 600 Mg Tab 600 MG PO DAILY PRN PAIN/AGITATION #60 Ref 0 TAB Levothyroxine (Levothyroxine) 100 Mcg Tab 100 MCG PO DAILY Thyroid #30 Ref 0 TAB Magnesium (Sm Magnesium) 250 Mg Tab 250 MG PO DAILY Multiple Vitamin (Multi Vitamin Daily) 1 Tab Tab 1 TAB PO DAILY Sherwood-3 Fatty Acids (Sherwood 3 1000 mg) 1 Cap Cap 1000 MG PO DAILY Paroxetine HCl (Paxil) 40 Mg Tablet 40 MG PO DAILY Meenu Frausto MD Sep 16, 2016 12:44
--- NOTE | 2016-09-16 15:50 | HHI.PR ---
Subjective Remarks Patient in bed. Says she feels sob and still wheezing however has improved since yesterday. She is sweating at times, however denies any fever or chills. No n/v/d/c. Feels very weak. Failed O2 walking test. Coughing but not much sputum production. Feels congested. Denies chest pain . No LE edema. Objective Vitals Vital Signs Date Time Temp Pulse Resp B/P Pulse Ox O2 Delivery O2 Flow Rate FiO2 09/16/16 12:00 97.8 58 20 121/69 99 09/16/16 08:10 95 Nasal Cannula 3.00 09/16/16 08:00 96.1 71 22 133/61 98 09/16/16 04:00 98.5 78 17 122/65 95 09/16/16 00:00 98.6 82 18 125/66 97 09/15/16 20:00 98.7 81 19 123/66 98 09/15/16 20:00 68 09/15/16 19:36 98 Nasal Cannula 3.00 09/15/16 16:00 99.7 68 20 120/91 97 I/O 09/15/16 09/15/16 09/15/16 09/16/16 09/16/16 09/16/16 07:00 15:00 23:00 07:00 15:00 23:00 Intake Total 1051 ml 480 ml 240 ml 300 ml Output Total 0 ml Balance 1051 ml 480 ml 240 ml 300 ml Intake Oral 240 ml 480 ml 240 ml 240 ml IV Total 811 ml 60 ml Output Stool Total 0 ml # Voids 3 2 2 # Bowel Movements 2 1 Result Diagram: 09/15/16 1031 09/15/16 1031 Imaging Last Impressions Chest X-Ray 09/13/161925 Signed Impressions: Service Date/Time: September 19:25 - CONCLUSION: Perihilar and left lower lung air space opacities suggest either pulmonary edema or infiltrates. Rubio Velazquez MD CT Angiography 09/13/161925 Signed Impressions: Service Date/Time: September 22:06 - CONCLUSION: 1. The study is negative for pulmonary embolism. 2. Patchy areas of infiltrate in the lower lungs bilaterally. Rubio Velazquez MD Lower Extremity Ultrasound 09/13/16 0000 Signed Impressions: Service Date/Time: September 20:17 - CONCLUSION: The study is negative for deep venous thrombosis bilateral lower extremity. Rubio Velazquez MD Objective Remarks GENERAL: Well-developed well-nourished. In no acute distress. Oriented 3. CARDIOVASCULAR: Regular rate and rhythm. No murmur appreciated. RESPIRATORY: No accessory muscle use. Clear to auscultation. Coarse crackles bilateral bases. GASTROINTESTINAL: Abdomen soft, non-tender, nondistended. Bowel sounds x4. MUSCULOSKELETAL: No obvious deformities. No clubbing or cyanosis. No edema. NEUROLOGICAL: Awake and alert. No focal neurological deficits. Moves upper and lower extremities spontaneously. Normal speech. PSYCHIATRIC: Appropriate mood and affect; insight and judgment normal. A/P Problem List: (1) Encephalopathy ICD Code: G93.40 Status: Resolved (2) PNA (pneumonia) ICD Code: J18.9 Status: Acute (3) Thrombocytopenia ICD Code: D69.6 Status: Acute (4) Renal insufficiency ICD Code: N28.9 Status: Chronic Assessment and Plan 76-year-old female with a PMH of HTN, Hyperlipidemia and Hypothyroidism who presented with altered mental status and found to have pneumonia Bilateral PNA: CXR w/ perihilar and left lower lung airspace opacities, pulmonary edema or infiltrates. CTA Pulm negative for PE, patchy areas of infiltrate bilateral bases. Continue IV Rocephin/Zithro. DuoNeb prn if needed. Supplemental O2, titrate as tolerated. Acapella. Mucinex scheduled and Tessalon as needed for cough. Duonebs for wheezing and sob supportive Check sputum cultures if obtainable Acute metabolic Encephalopathy: Improved. Patient was found to be hypoxic 90% upon EMS arrival. Mental status improved with supplemental oxygen. Likely secondary to acute infection and hypoxia, see above. Patient failed O2 walking test satting 88% on room air. CKD: Chronic, stable. Creatinine 1.19, previously 1.31 at 11/11/15. Creatinine 1.16 overnight. Continue IVF. Monitor. Thrombocytopenia: Platelets 148/143, previously 197 on 11/11/15. No active bleeding at this time. Likely secondary to acute infection. Monitor. DVT Prophylaxis: SCD/teds. Discharge Planning Still requiring 2 L O2. Discharge planning pending further clinical improvement. PT consulted, recommends home PT if needed. Failed O2 walking test , needs o2 at home. Consult CM to arrange for DC needs. Discussed with the patient, nurse, at bedside. Problem Qualifiers (1) PNA (pneumonia): Qualified Code: J18.9 - Pneumonia of both lower lobes due to infectious organism Meenu Frausto MD Sep 16, 2016 15:50
[2016-09-16] MEDS: cefTRIAXone INJ 1,000 MG in SODIUM CHLORIDE 0.9% INJ 100 ML IV SCH (23:23)
[2016-09-17] VITALS: BP 105/69; PULSE 82; RESP 18; TEMP 96.8; O2SAT 96
[2016-09-17 00:02] VITALS: PULSE 60
[2016-09-17 03:59] VITALS: BP 120/58; PULSE 61; RESP 19; TEMP 99; O2SAT 96
[2016-09-17 08:00] VITALS: BP 105/64; PULSE 59; PULSE 65; RESP 18; TEMP 97.7; O2SAT 95
[2016-09-17] MEDS: RESP: ALBUTEROL 2.5 MG/IPRATROPIUM 0.5 MG NEB (SCH) NEB (09:40)
[2016-09-17] MEDS: DOCUSATE SODIUM 50 MG/SENNA 8.6 MG TAB PO SCH (09:59)
[2016-09-17] MEDS: predniSONE 10 MG TAB PO SCH (09:59)
[2016-09-17] MEDS: guaiFENesin E.R. 600 MG TAB PO SCH (10:00)
[2016-09-17] MEDS ORDERED: OXYGENDME NAS.CANULA (11:20)
[2016-09-17 12:00] VITALS: BP 121/79; PULSE 64; RESP 18; TEMP 97.5; O2SAT 94
[2016-09-17] MEDS ORDERED: DEXT1TAB18 PO (13:11)
--- NOTE | 2016-09-17 13:15 | HHI.PR ---
Subjective Remarks In the bed, says she feels improved today, no fever or chills. Still with cough but not much flegm. She was able to ambulate with PT today. SOB at baseline. feels improving and feels comfortable to go home. To f/u as OP with PCP and pulm Objective Vitals Vital Signs Date Time Temp Pulse Resp B/P Pulse Ox O2 Delivery O2 Flow Rate FiO2 09/17/16 08:00 97.7 65 18 105/64 95 09/17/16 08:00 97.7 65 18 105/64 95 09/17/16 03:59 99.0 61 19 120/58 96 09/17/16 00:02 60 09/17/16 00:00 96.8 82 18 105/69 96 09/16/16 20:57 95 09/16/16 20:30 95 09/16/16 20:00 97.4 64 19 151/96 95 09/16/16 16:00 97.0 64 18 140/73 97 I/O 09/16/16 09/16/16 09/16/16 09/17/16 09/17/16 09/17/16 06:59 14:59 22:59 06:59 14:59 22:59 Intake Total 300 ml 1080 ml 240 ml Output Total 0 ml Balance 300 ml 1080 ml 240 ml Intake Oral 240 ml 1080 ml 240 ml IV Total 60 ml Output Stool Total 0 ml # Voids 2 5 3 # Bowel Movements 1 0 Result Diagram: 09/15/16 1031 09/15/16 1031 Objective Remarks GENERAL: Well-developed well-nourished. In no acute distress. Oriented 3. CARDIOVASCULAR: Regular rate and rhythm. No murmur appreciated. RESPIRATORY: No accessory muscle use. Clear to auscultation. Coarse crackles bilateral bases. GASTROINTESTINAL: Abdomen soft, non-tender, nondistended. Bowel sounds x4. MUSCULOSKELETAL: No obvious deformities. No clubbing or cyanosis. No edema. NEUROLOGICAL: Awake and alert. No focal neurological deficits. Moves upper and lower extremities spontaneously. Normal speech. PSYCHIATRIC: Appropriate mood and affect; insight and judgment normal. Procedures none A/P Problem List: (1) Encephalopathy ICD Code: G93.40 Status: Resolved (2) PNA (pneumonia) ICD Code: J18.9 Status: Acute (3) Thrombocytopenia ICD Code: D69.6 Status: Acute (4) Renal insufficiency ICD Code: N28.9 Status: Chronic Assessment and Plan 76-year-old female with a PMH of HTN, Hyperlipidemia and Hypothyroidism who presented with altered mental status and found to have pneumonia Bilateral PNA: CXR w/ perihilar and left lower lung airspace opacities, pulmonary edema or infiltrates. CTA Pulm negative for PE, patchy areas of infiltrate bilateral bases. Continue IV Rocephin/Zithro. DuoNeb prn if needed. Supplemental O2, titrate as tolerated. Acapella. Mucinex scheduled and Tessalon as needed for cough. Duonebs for wheezing and sob supportive Check sputum cultures if obtainable Acute metabolic Encephalopathy: Improved. Patient was found to be hypoxic 90% upon EMS arrival. Mental status improved with supplemental oxygen. Likely secondary to acute infection and hypoxia, see above. Patient failed O2 walking test satting 88% on room air. CKD: Chronic, stable. Creatinine 1.19, previously 1.31 at 11/11/15. Creatinine 1.16 overnight. Continue IVF. Monitor. Thrombocytopenia: Platelets 148/143, previously 197 on 11/11/15. No active bleeding at this time. Likely secondary to acute infection. Monitor. DVT Prophylaxis: SCD/teds. Discharge Planning Still requiring 2 L O2. Discharge planning pending further clinical improvement. PT consulted, recommends home PT if needed. Failed O2 walking test , needs o2 at home. Consult CM to arrange for DC needs. Discussed with the patient, nurse, at bedside. Problem Qualifiers (1) PNA (pneumonia): Qualified Code: J18.9 - Pneumonia of both lower lobes due to infectious organism Meenu Frausto MD Sep 17, 2016 13:15
== END 2016-09-17 15:40 | disposition home or self-care (01) | DRG 70 ==
LOC: NEDAMB 18:39 → NEDA 22:49 → NEPGCP 09-14 00:32 → HOCA 09-14 15:30
PROVIDERS: ADMIT Hospitalist; ATTEND Hospitalist
DX: G93.41 Metabolic encephalopathy (principal); J18.9 Pneumonia, unspecified organism; J81.1 Chronic pulmonary edema; D69.6 Thrombocytopenia, unspecified; E03.9 Hypothyroidism, unspecified; E78.5 Hyperlipidemia, unspecified; I12.9 Hypertensive chronic kidney disease with stage 1 through stage 4 chronic kidney disease, or unspecified chronic kidney disease; N18.9 Chronic kidney disease, unspecified; K21.9 Gastro-esophageal reflux disease without esophagitis; M13.0 Polyarthritis, unspecified; R09.02 Hypoxemia; Z96.652 Presence of left artificial knee joint
CPT/HCPCS: 36600; 71010; 71275; 80053; 81001; 82550; 82552; 82805; 83880; 84484; 85025; 85027; 93005; 93970; 94620; 94640; 94664; 94667; 96374; J0456; J0696; J1940; J7030; J7050; J7512; J7613; Q9967

== ENCOUNTER → 2017-01-07 | Outpatient (CLI) | payer OTHER ==
[~2017-01-07] MED LIST changes: +ASCO1TAB14 PO; -ATOR40TA PO; +CALC600T64 PO; -CALCTAB80 PO; +CEFU1TAB20 PO; +DEXT1TAB18 PO; +LEVO100T5 PO; -MAGN250T13 PO; +MULT1TAB46 PO; +OMEG100010 PO; -OMEG100037 PO; +OXYGENDME NAS.CANULA; -PARO20TA PO; +PAXI40TA9 PO; +SM M250T PO; -SYNT100T PO; -TAB-TAB PO; +VENTAER INH; -VITA100017 PO; -VITA20002 PO; +WALKER WHEELS/F1 MIS; -Z.0.COMMODE-3:1; -Z.0.WALKERFRONT
[2017-01-07 11:03] LABS: BLOOD GAS BASE EXCESS -1.3 mmol/L (-2-2); BLOOD GAS CARBOXYHEMOGLOBIN 0.8 % (0-4); BLOOD GAS HCO3 23 mmol/L (22-26); BLOOD GAS METHEMOGLOBIN 1.1 % (0-2); BLOOD GAS O2 HGB SATURATION 95 % (90-100); BLOOD GAS OXYGEN CONTENT 17.9 Vol % (12.0-20.0); BLOOD GAS PCO2 36 mmHg (38-42); BLOOD GAS PO2 85 mmHg (61-120); BLOOD GAS TOTAL HGB 13.4 G/DL (12.0-16.0); TEMP CORR TO 98.6
[2017-01-07 11:04] LABS: CRITICAL VALUE NO; DRAW SITE RT RADIAL; FIO2 21 %; NUMBER OF ARTERIAL PUNCTURES 1; STAT NO; ULNAR PULSE PRESENT
--- NOTE | 2017-01-08 11:02 | RSPPFT ---
DATE OF PROCEDURE: 01/07/17 COMMENTS: Spirometry shows FVC of 2.5 at 105% of predicted, FEV1 of 2.0 at 115%, FEV1/FVC ratio is normal. Flow is normal at FEF 25, FEF 50, FEF 75 and FEF 25-75. There is no response after bronchodilator treatment. Lung volumes show residual volume is normal. TLC is normal. Flow volume loop indicates a normal pattern. IMPRESSION: 1. Normal spirometry. 2. No response after bronchodilator treatment. 3. Normal lung volumes.
== END ==
LOC: HRSP 09:11
PROVIDERS: ATTEND Specialist
DX: J44.9 Chronic obstructive pulmonary disease, unspecified (principal); R06.00 Dyspnea, unspecified; R09.02 Hypoxemia
CPT/HCPCS: 36600; 82805; 94060; 94726